=== PATIENT | male | born 1960 | race Caucasian/White ===

== ENCOUNTER 2017-12-22 09:24 | Day surgery (SDC) | payer BC ==
[2017-12-21 12:15] VITALS: BMI 33.0
[~2017-12-22 09:24] MED LIST: LACTATED RINGERS 1,000 ML IV ONE; LIDOCAINE 1% 20 ML VIAL (10MG/ML) FOR IV START INTRADERMA PRN
[2017-12-22 09:40] VITALS: TEMP 96.5
[2017-12-22] MEDS ORDERED: PROPOFOL 10 MG/ML 20 ML VIAL IV ONE (10:40)
[2017-12-22] MEDS ORDERED: LIDOCAINE 1% INJ 10MG/ML (20 ML MDV) ONE (10:40)
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
--- NOTE | 2017-12-22 11:20 | P.OP ---
Date of Procedure: 12/22/17 Preoperative Diagnosis: Diarrhea GERD Postoperative Diagnosis: Antral gastritis No evidence of hiatal hernia Normal esophagus Diverticulosis Left colon biopsy pathology pending Procedure(s) Performed: Colonoscopy Anesthesia: MAC Surgeon: Timothy Henson Pathology: other (Antrum, left colon) Condition: stable Disposition: PACU Description of Procedure: The patient's placed on the endoscopy table in the lateral position. He received IV sedation. The gastroscope placed oropharynx and passed into the esophagus and into the stomach. The scope was then placed through the pylorus. The first and second portion of the duodenum appeared normal. Scope was then brought back the antrum and this appeared mildly inflamed. A biopsies performed. The scope was then retroflexed and the remainder of the stomach appeared normal. There was no significant hiatal hernia. The GE junction was at 40 cm. The distal esophagus and proximal esophagus appeared normal. Scope was withdrawn for patient. Next digital rectal exam was performed which revealed no abnormalities. The flexible colonoscope was then placed patient anus and passed throughout the entire colon. The ileocecal valve was visualized. The cecum, ascending and transverse colon appeared normal. In the descending colon there is evidence of some mild diverticulosis. There was also a small area of mucosal perforation this was biopsied. The scope was withdrawn and the sigmoid colon there was more extensive diverticular changes. The scope was then brought back the rectum and this appeared normal. Scope was withdrawn for patient.
[2017-12-22 11:53] VITALS: BP 117/73; RESP 18
[2017-12-22 12:28] VITALS: PULSE 51
--- NOTE | 2017-12-22 14:52 | NM ---
EXAMINATION TYPE: NM hepatobiliary w CCK DATE OF EXAM: 12/22/2017 COMPARISON: NONE HISTORY: Pain TECHNIQUE: After the intravenous administration of 6 mCi Tc 99m Mebrofenin hepatobiliary scintigraphy is performed. Immediate images post injection. FINDINGS: There is satisfactory initial accumulation of tracer by the liver. The gallbladder is visualized wit hin 14 minutes. The small bowel activity is noted within 16 minutes. At one hour CCK was administer ed, patient was injected with 2.3 mcg of Kinevac, and gallbladder ejection fraction is calculated at 91%. IMPRESSION: Consider hypercontractile gallbladder.
== END 2017-12-22 12:30 | disposition home or self-care (01) ==
LOC: ORWHC2ENDO 09:24
PROVIDERS: ATTEND Surgery
DX: K29.50 Unspecified chronic gastritis without bleeding (principal); K21.9 Gastro-esophageal reflux disease without esophagitis; I10 Essential (primary) hypertension; K57.20 Diverticulitis of large intestine with perforation and abscess without bleeding; Z86.79 Personal history of other diseases of the circulatory system; Z79.899 Other long term (current) drug therapy; Z79.890 Hormone replacement therapy; Z88.0 Allergy status to penicillin
CPT/HCPCS: 88305; 78227; 45380; 43239; A9537; J2805; J2001; J2704

== ENCOUNTER 2017-12-28 11:13 | Observation (INO) | payer BC ==
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
[2017-12-28 12:46] LABS: Appearance,Urine Clear (Clear); Bilirubin,Urine Negative (Negative); Blood,Urine Small (Negative); Color,Urine Yellow; Glucose,Urine (UA) Negative (Negative); Ketones,Urine Negative (Negative); Leukocyte Esterase,Urine Negative (Negative); Mucus,Urine Few /hpf; Nitrite,Urine Negative (Negative); Protein,Urine 1+ (Negative); RBC,Urine 9 /hpf (0-5); Specific Gravity,Urine 1.018 (1.001-1.035); Urobilinogen,Urine <2.0 mg/dL (<2.0); WBC,Urine 1 /hpf (0-5)
[2017-12-28 12:53] LABS: D-Dimer 0.5 mg/L FEU (<0.60)
--- NOTE | 2017-12-28 12:53 | XR ---
EXAMINATION TYPE: XR chest 2V DATE OF EXAM: 12/28/2017 COMPARISON: NONE HISTORY: Shortness of breath TECHNIQUE: Frontal and lateral views of the chest are obtained. FINDINGS: Scattered senescent parenchymal changes noted. No evidence for infiltrate. No evidence for atelectasis. Heart size is stable. Mediastinal structures are stable and grossly unremarkable. No evidence for hilar prominence. Degenerative changes dorsal spine. IMPRESSION: 1. No evidence for acute pulmonary disease.
[2017-12-28 12:56] LABS: ALT 170 U/L (21-72); AST 135 U/L (17-59); Albumin 4.2 g/dL (3.5-5.0); Alkaline Phosphatase 67 U/L (38-126); Amylase 33 U/L (30-110); Anion Gap 14 mmol/L; Blood Urea Nitrogen 12 mg/dL (9-20); Calcium 9.1 mg/dL (8.4-10.2); Carbon Dioxide 24 mmol/L (22-30); Chloride 102 mmol/L (98-107); Glucose 97 mg/dL (74-99); Lipase 38 U/L (23-300); Magnesium 2.1 mg/dL (1.6-2.3); Potassium 3.9 mmol/L (3.5-5.1); Sodium 140 mmol/L (137-145); Total Bilirubin 0.5 mg/dL (0.2-1.3); Total Protein 6.8 g/dL (6.3-8.2)
--- NOTE | 2017-12-28 12:56 | XR ---
EXAMINATION TYPE: XR KUB DATE OF EXAM: 12/28/2017 COMPARISON: NONE HISTORY: Pain TECHNIQUE: Single supine KUB image of the abdomen is obtained FINDINGS: Small bowel demonstrates no evidence for dilatation or air fluid levels. Gas and fecal material is seen in non-distended colon. No convincing evidence for pneumoperitoneum. No unusual calcifications. The lung bases are clear. The osseous structures are intact. IMPRESSION: 1. Overall nonobstructive bowel gas pattern.
[2017-12-28 12:57] LABS: INR 1.1 (<1.2); Partial Thromboplastin Time 26.9 sec (22.0-30.0); Prothrombin Time 10.8 sec (9.0-12.0)
[2017-12-28 12:59] LABS: HGB 14.6 gm/dL (13.0-17.5); MCH 29.3 pg (25.0-35.0); MCHC 34.8 g/dL (31.0-37.0); MCV 84.1 fL (80.0-100.0); Mean Platelet Volume 7.5; Platelet Count 165 k/uL (150-450); RDW 13.7 % (11.5-15.5); WBC 3.3 k/uL (3.8-10.6)
[2017-12-28 13:06] LABS: Creatine Kinase 107 U/L (55-170)
[2017-12-28 13:18] LABS: Band Neutrophils % 1 %; Lymphocytes # (M) 0.83 k/uL (1.0-4.8); Monocytes # (M) 0.53 k/uL (0-1.0); Neutrophils % (M) 58 %; Nucleated Red Blood Cells 0 /100 WBC (0-0); Total Cells Counted 100
[2017-12-28 13:19] LABS: Creatine Kinase MB <0.2 ng/mL (0.0-2.4); Troponin I <0.012 ng/mL (0.000-0.034)
[2017-12-28] MEDS ORDERED: NITROGLYCERIN SL TABS 0.4 MG TAB SUBLINGUAL PRN (14:51)
[2017-12-28] MEDS ORDERED: GABAPENTIN 100 MG CAP PO PRN (14:55)
[2017-12-28] MEDS ORDERED: BACLOFEN 10 MG TAB PO PRN (14:55)
[2017-12-28] MEDS ORDERED: SODIUM CHLORIDE 0.9% 1,000 ML IV SCH (15:00)
--- NOTE | 2017-12-28 15:41 | US ---
EXAMINATION TYPE: US gallbladder DATE OF EXAM: 12/28/2017 COMPARISON: NONE CLINICAL HISTORY: Abdominal Pain. Nausea/vomiting. difficult exam due to overlying bowel gas EXAM MEASUREMENTS: Liver Length: 17.4 cm Gallbladder Wall: 0.2 cm CBD: 0.3 cm Right Kidney: 10.5 x 5.8 x 5.0 cm Pancreas: Obscured by bowel gas, visualized portions appear wnl Liver: Coarse, heterogeneous echotexture. Cystic area visualized left lobe measuring 0.8 x 0.7 x 0.9 cm Gallbladder: No stones or sludge visualized Evidence for sonographic Cat's sign: No CBD: wnl as visualized Right Kidney: No hydronephrosis or masses seen IMPRESSION: 1. Hepatic steatosis versus diffuse hepatocellular disease. 2. Hepatic cyst.
[2017-12-28 19:19] LABS: Creatine Kinase 92 U/L (55-170)
[2017-12-28 19:32] LABS: Creatine Kinase MB 0.2 ng/mL (0.0-2.4); Troponin I <0.012 ng/mL (0.000-0.034)
[2017-12-28 19:54] VITALS: RESP 18
[2017-12-28] MEDS: HYDROcodone/APAP 10-325MG 1 EACH TAB PO PRN (21:12)
--- NOTE | 2017-12-28 22:57 | HP ---
HISTORY AND PHYSICAL CHIEF COMPLAINT: 57-year-old white male with cough, congestion and lower back, rib pain, abdominal pain when he coughs. He says has been there for about a week or 2, but it is intermittent, burning is a 10/10. This burning pain wraps around his upper abdomen toward his back. He has a history of lumbar disc disease, cervical disc disease. He had a colonoscopy and EGD done 6 days ago, which were negative. Known history of atrial fibrillation, converted in the past. History of diverticulitis with diverticulosis. He has elevated liver enzymes in the ER. He had a recent HIDA scan. No known gallbladder disease. Does drink alcohol at variable amounts. MEDICATION: Home medicines are: Lipitor 20 daily, Lioresal 20 mg daily, Neurontin 300 daily, [place] q.6 hours, Synthroid 200 mcg daily, Prilosec 20 mg daily. Testosterone applications daily, AndroGel pump. ALLERGIES: AMPICILLIN. REVIEW OF SYSTEMS: Fourteen point review of systems negative except for mentioned in HPI. PAST MEDICAL HISTORY: Atrial fibrillation, GERD, musculoskeletal disorders, degenerative disc disease, atrial fibrillation with cardiac ablation, surgery on left femur, left knee with hardware, stomach pain after eating, possibly acalculous cholecystitis is present. He had a recent HIDA scan which results are pending. History of cardiac ablation, orthopedic surgery, bone taken from hip to rebuild the left knee, surgery on left femur. SOCIAL HISTORY: No smoking. No alcohol. No illicit drugs. FAMILY HISTORY: Mother with COPD. Father cancer of lung and brain cancer with METS. PHYSICAL EXAM: Well developed, well nourished white male in no acute distress. GENERAL APPEARANCE: Alert, no acute distress. HEAD: Normocephalic, atraumatic. Ophthalmologic: Pupils equal, round, react to light and accommodation. Extraocular muscles intact. No scleral icterus. NECK: Supple. No mass, organomegaly. No lymphadenopathy respiratory normal lung sounds bilaterally. No wheezes, rhonchi, or stridor. Cardiac regular rate and rhythm. Normal heart sounds. No murmurs, rubs or gallops. GI is soft, nontender. Distended abdomen. No guarding or rebound. Extremities normal inspection. Full range of motion. Back: Normal inspection. Psych: Alert, oriented x3. GI soft, nontender. He has a congested cough which makes his back pain worse, pleuritic pain, worse cough. LABORATORY DATA: White count 3.3, hemoglobin is 14.6, BUN is 12, creatinine 0.69. Liver enzymes, AST 135, ALT 170. D-dimer is negative. ASSESSMENT: 1. Atypical chest pain. 2. Abdominal pain, probable gastroesophageal reflux disease, possibly acalculous cholecystitis. 3. Fatty liver. 4. Alcoholism. 5. Pleurisy. IV steroids will be given. Surgical consult for elevated liver enzymes. Await Cardiology consult for chest pain to rule out DC. MMODL / IJN: [id number] /
[2017-12-28] MEDS: methylPREDNISolone SOD SUCCI 40 MG/ML 1 ML VIAL IV SCH (23:52)
[2017-12-29 02:30] LABS: Creatine Kinase 97 U/L (55-170)
[2017-12-29 02:45] LABS: Creatine Kinase MB 0.3 ng/mL (0.0-2.4); Troponin I <0.012 ng/mL (0.000-0.034)
[2017-12-29 03:49] LABS: Cholesterol 102 mg/dL (<200); HDL Cholesterol 36 mg/dL (40-60); LDL Cholesterol,Calculated 54 mg/dL (0-99); Triglycerides 62 mg/dL (<150)
[2017-12-29] MEDS ORDERED: LEVOTHYROXINE 100 MCG TAB PO SCH (06:30)
[2017-12-29] MEDS ORDERED: PANTOPRAZOLE 40 MG TABLET PO SCH (07:30)
[2017-12-29 07:45] LABS: Glucose,Whole Blood 100 mg/dL (75-99)
--- NOTE | 2017-12-29 07:46 | CT ---
EXAMINATION TYPE: CT chest wo con DATE OF EXAM: 12/28/2017 COMPARISON: NONE HISTORY: Cough with SOB CT DLP: 512.[address] of the chest was performed with lung and mediastinal window settings submitted. The la ck of contrast limits evaluation of the vascular, mediastinal and parenchymal structures including th e upper abdomen. LUNGS: Small area of limited atelectasis or infiltrate left lower lobe. The remainder of the lungs ar e clear. No atelectasis. No pulmonary nodule or mass is detected. No pleural effusion. No CT evide nce of interstitial lung disease. MEDIASTINUM/CODY: Thoracic aorta is of normal caliber with limited evaluation given lack of contrast . The heart isenlarged. No evidence for mediastinal mass. No lymph nodes greater than 1cm. UPPER ABDOMEN: No significant abnormality is seen. OTHER: No significant other abnormality. IMPRESSION: 1. Small area of limited atelectasis or infiltrate left lower lobe. 2. Cardiomegaly.
[2017-12-29] MEDS: INSULIN ASPART 100 UNIT/ML 1 ML 10 ML VIAL SQ SCH ×2 (08:44→13:55)
[2017-12-29] MEDS: methylPREDNISolone SOD SUCCI 40 MG/ML 1 ML VIAL IV SCH (08:45)
[2017-12-29] MEDS ORDERED: ATORVASTATIN 20 MG TAB PO SCH (09:00)
[2017-12-29] MEDS ORDERED: ASPIRIN 325 MG TAB PO SCH (09:00)
[2017-12-29 12:07] LABS: Glucose,Whole Blood 121 mg/dL (75-99)
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
[2017-12-29] MEDS: HYDROcodone/APAP 10-325MG 1 EACH TAB PO PRN (13:54)
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
[2017-12-29 14:34] LABS: Hemoglobin A1C 5.7 % (4.0-6.0)
[2017-12-29 14:35] VITALS: BP 108/61; PULSE 52; TEMP 99.1
[2017-12-29] MEDS ORDERED: LACTATED RINGERS 1,000 ML IV ONE (14:42)
--- NOTE | 2017-12-29 15:08 | P.PN ---
Progress Note - Text Progress Note Date: 12/29/17 The patient was scheduled for laparoscopic cholecystectomy today. However due to the on-call caseload in the OR his procedure was canceled. Patiently rescheduled for Monday for elective laparoscopic cholecystectomy. Patient given a diet today. He will follow up on Monday for laparoscopic cholecystectomy.
== END 2017-12-29 15:43 | disposition home or self-care (01) ==
LOC: EC 11:13 → 3OBS 14:52
PROVIDERS: ADMIT Family Medicine; ATTEND Family Medicine
DX: R10.11 Right upper quadrant pain (principal); R10.9 Unspecified abdominal pain; R10.13 Epigastric pain; R07.89 Other chest pain; R42 Dizziness and giddiness; H53.8 Other visual disturbances; R09.1 Pleurisy; Z53.8 Procedure and treatment not carried out for other reasons; I48.0 Paroxysmal atrial fibrillation; K76.0 Fatty (change of) liver, not elsewhere classified; F10.20 Alcohol dependence, uncomplicated; K21.9 Gastro-esophageal reflux disease without esophagitis; M54.9 Dorsalgia, unspecified; K57.90 Diverticulosis of intestine, part unspecified, without perforation or abscess without bleeding; E78.00 Pure hypercholesterolemia, unspecified; Z88.0 Allergy status to penicillin; Z79.899 Other long term (current) drug therapy; Z82.5 Family history of asthma and other chronic lower respiratory diseases; Z80.1 Family history of malignant neoplasm of trachea, bronchus and lung; Z80.8 Family history of malignant neoplasm of other organs or systems
CPT/HCPCS: 99285 ×2; 96374; 96376; 36415; 93005; 85379; 80061; 80053; 82150; 82550 ×2; 82553 ×2; 83690; 83735; 84484 ×2; 85025; 85610; 85730; 81001; 83036; 71046; 74018; 76705; 71250; G0378 ×2; J2920 ×2